=== PATIENT | male | born 1970 | race Hispanic/Latino ===

== ENCOUNTER 2018-01-04 02:54 | Inpatient (IN) | payer SELFPAY ==
[2018-01-04] MEDS ORDERED: Morphine 4 MG/ML VIAL ONE (03:10)
[2018-01-04] MEDS ORDERED: Pantoprazole 40 MG VIAL ONE (03:10)
[2018-01-04] MEDS ORDERED: Ondansetron HCl/PF 4 MG/2 ML Vial ONE (03:10)
[2018-01-04 03:31] LABS: Hemoglobin 6.4 g/dL (14.0-18.0); Mean Corpuscular HGB CONC 28.7 g/dL (32.0-36.0); Mean Corpuscular Hemoglobin 16.3 pg (27.0-31.0); Mean Corpuscular Volume 56.6 fL (78.0-98.0); Platelet Count 195 thou/uL (130-400); RBC Distribution Width 17.7 % (11.5-14.5); Red Blood Cell (RBC) Count 3.93 mill/uL (4.70-6.10); White Blood Cell (WBC) Count 5.6 thou/uL (4.8-10.8)
[2018-01-04 03:45] LABS: ALT (SGPT) 31 U/L (8-55); AST (SGOT) 32 U/L (5-34); Albumin 4.1 g/dL (3.5-5.0); Alkaline Phosphatase 103 U/L (40-150); Anion Gap 11 mmol/L (10-20); BUN (Urea Nitrogen) 11 mg/dL (8.9-20.6); Bilirubin, Total 1.5 mg/dL (0.2-1.2); Calc. Creatinine Clearance 0 mL/min (70-130); Calcium 8.7 mg/dL (7.8-10.44); Carbon Dioxide 25 mmol/L (22-29); Chloride 103 mmol/L (98-107); Estimated GFR-MDRD Greater than 90; Globulin 2.7 g/dL (2.4-3.5); Glucose 141 mg/dL (70-105); Lipase 23 U/L (8-78); Potassium 3.1 mmol/L (3.5-5.1); Protein, Total 6.8 g/dL (6.0-8.3); Sodium 136 mmol/L (136-145)
[2018-01-04 03:50] LABS: Anisocytosis SLIGHT = 6-15 cells (100X) (0-5/hpf); Band 1 % (5-11); CKMB 2.4 ng/mL (0-6.6); Elliptocytes SLIGHT = 2-5 cells (100X) (0-1/hpf); Eosinophils 1 % (0-10); Hypochromia MODERATE=16-30 cells (100X) (0-5/hpf); Lymphocytes 49 % (21-51); MDiff Complete? YES; Microcytosis MARKED = >30 cells (100X) (0-5/hpf); Monocytes 5 % (0-10); Neutrophil 43 % (42-75); PLT Morphology Comment Appears Adequate; Reflex for Review?? YES; Troponin I Less than 0.010 ng/mL (< 0.028)
[2018-01-04] MEDS ORDERED: Potassium Chloride 20 MEQ/100 ML PREMIX BAG ONE ×2 (04:17→06:05)
[2018-01-04 04:27] LABS: PTT 23.9 SEC (22.9-36.1)
[2018-01-04 04:28] LABS: INR-International Normal Ratio 1.1; Prothrombin Time 14.7 SEC (12.0-14.7)
[2018-01-04] MEDS ORDERED: Ondansetron ODT 4 MG TAB PO PRN (07:34)
[2018-01-04] MEDS ORDERED: Ondansetron HCl/PF 4 MG/2 ML Vial IVP PRN (07:34)
[2018-01-04 08:02] VITALS: BMI 27.9
[2018-01-04] MEDS: Potassium Chloride 20 MEQ in Premix Bag 1 BAG IVPB SCH ×2 (08:13→12:58)
[2018-01-04] MEDS ORDERED: Acetaminophen 650 MG Suppository PR PRN (08:23)
--- NOTE | 2018-01-04 08:57 | CT ---
PRELIMINARY REPORT/[facility]/EMERGENTY AFTER-HOURS PROCEDURE CT Abdomen and Pelvis With Intravenous Contrast EXAM DATE/TIME: Exam ordered 01/04/2018 3:33 AM CLINICAL HISTORY: 47 years old, male; Pain; Abdominal pain; Epigastric; Patient HX: Er 2; M47 presents to the ed C/O ab dominal pain that started 1 hour ago. Pt. Describes pain as sharp and being located in epigastric are a pt. States that he was laying down when the pain started. Pt. Reports n/v and SOB. Pt. Reports that he had a meal from [employer] before the symptoms had started. Pt. Denies having any chronic he alth complications. TECHNIQUE: Axial computed tomography images of the abdomen and pelvis with intravenous contrast. Coronal reformatted images were created and reviewed. COMPARISON: No relevant prior studies available. FINDINGS: Lung bases: There is subpleural atelectasis of the dependent portions of the lungs. ABDOMEN: Liver: There are no focal liver lesions identified. Gallbladder and bile ducts: The gallbladder is normal. There is no evidence of biliary ductal dilatio n. No calcified stones. Pancreas: The pancreas appears normal. No ductal dilation. Spleen: The spleen is normal. Adrenals: The adrenal glands are normal. Kidneys and ureters: The kidneys appear normal. No hydronephrosis. Stomach and bowel: There is dilatation of the small bowel up to 3.6 cm with abrupt collapse of the je junum in the LEFT upper quadrant suspicious for small bowel obstruction. The stomach is normal. The d uodenum is unremarkable. The colon is normal. No mucosal thickening. PELVIS: Appendix: A normal appendix is identified. Bladder: The bladder is normal. Reproductive: The prostate gland and seminal vesicles are normal. ABDOMEN and PELVIS: Intraperitoneal space: Normal. No free air. No significant fluid collection. Bones/joints: No acute fracture. No dislocation. Soft tissues: Normal. Vasculature: Normal. No abdominal aortic aneurysm. Lymph nodes: Normal. No enlarged lymph nodes. IMPRESSION: There is dilatation of the small bowel up to 3.6 cm with abrupt collapse of the jejunum in the LEFT u pper quadrant suspicious for small bowel obstruction. Thank you for allowing us to participate in the care of your patient. Dictated and Authenticated by: Xander Sanchez MD 01/04/2018 5:16 AM Central Time ([place] & [place]) CT ABDOMEN AND PELVIS WITH IV CONTRAST: FINAL REPORT: I agree with the preliminary report given by Dr. Sanchez of [facility]. POS: [facility]
--- NOTE | 2018-01-04 09:11 | RAD ---
ONE VIEW CHEST: History: Dyspnea. Comparison: None. FINDINGS: One view chest. Normal cardiac silhouette. The pulmonary vessels are within normal limits. Costophrenic angles are cl ear. No consolidation or mass. No pneumothorax or osseous abnormality. IMPRESSION: No acute cardiopulmonary process. POS: [facility]
[2018-01-04 10:36] LABS: #Eosinphils 0.1 thou/uL (0.0-0.7); #Monocytes 0.4 thou/uL (0.11-0.59); %Basophils 0.4 % (0.0-1.0); %Lymphocytes 18.8 % (21.0-51.0); %Monocytes 7.3 % (0.0-10.0); %Neutrophils 71.6 % (42.0-75.0); Hemoglobin 8.3 g/dL (14.0-18.0); Mean Corpuscular HGB CONC 29.1 g/dL (32.0-36.0); Mean Corpuscular Hemoglobin 18.1 pg (27.0-31.0); Mean Corpuscular Volume 62.3 fL (78.0-98.0); Mean Platelet Volume 6.3 fL (7.4-10.4); Platelet Count 194 thou/uL (130-400); RBC Distribution Width 24.6 % (11.5-14.5); Red Blood Cell (RBC) Count 4.59 mill/uL (4.70-6.10); White Blood Cell (WBC) Count 5.6 thou/uL (4.8-10.8)
[2018-01-04 10:37] LABS: Reticulocyte Count 1.7 % (0.5-1.5)
[2018-01-04 10:48] LABS: Iron 13 ug/dL (65-175); Iron Binding Capacity, Total 424 mcg/dL (261-462)
--- NOTE | 2018-01-04 10:58 | PDOC.GSCN ---
Surgery Consult: HPI - Consult details Date: 01/04/18 Time: 10:00 Reason for consult: small bowel obstruction History of present illness: Patient is a 47 year old male that presents after having sharp abdominal pain this morning at 2am. Pain located in RUQ and radiates to epigastric area. Patient has had this pain in the past, but not as severe. Ate a hamburger at [employer] yesterday evening. Abdominal pain has since improved. Endorses nausea following the meal. Bowel function unchanged. Denies weight loss. Reports bright red blood per rectum. 01/04/18 11:06 Surgery Consult: ROS - Review of Systems All systems: 10 systems reviewed and no additional complaints unless stated below. Surgery Consult: PMH Source: patient Past Medical History: Denies Past Surgical History: None - Past Family History Family history: reviewed and not pertinent (No family history of colon cancer.) - Past Social History Smoking Status: Never smoker Alcohol Use: other (endorses drinking every other day) Drug Use History: none Living Situation: Surgery Consult: Exam - Vital signs Vital signs: Vital Signs - Most Recent Temp Pulse Resp BP Pulse Ox 98.1 F 62 20 115/72 100 01/04/18 07:59 01/04/18 07:59 01/04/18 07:59 01/04/18 07:59 01/04/18 07:59 - Physical Exam General: no distress, well developed, well nourished Eye: normal ocular movement Respiratory: normal expansion, normal respiratory effort Abdomen: soft, tender, bowel sounds Neurologic: normal coordination Psychiatric: memory intact, speech is normal Surgery Consult: Meds - Medications MAR Reviewed: Yes Medications: Current Medications Acetaminophen (Tylenol) 650 mg VA Q4H PRN PRN Reason: Headache/Fever or Pain Ondansetron HCl (Zofran) 4 mg IVP Q6H PRN PRN Reason: Nausea/Vomiting Stop: 01/04/18 18:00 Ondansetron HCl (Zofran Odt) 4 mg PO Q6H PRN PRN Reason: Nausea/Vomiting Stop: 01/04/18 18:00 Sodium Chloride (Flush - Normal Saline) 10 ml IVF Q12HR TRISTEN Sodium Chloride (Flush - Normal Saline) 10 ml IVF PRN PRN PRN Reason: Saline Flush - Allergies Allergies/Adverse Reactions: Allergies Allergy/AdvReac Type Severity Reaction Status Date / Time No Known Drug Allergies Allergy Verified 01/04/18 08:14 Surgery Consult: Results - Labs Result Diagrams: 01/04/18 10:03 01/04/18 03:05 Lab results: Laboratory Results WBC 5.6 thou/uL (4.8-10.8) 01/04/18 10:03 RBC 4.59 mill/uL (4.70-6.10) L 01/04/18 10:03 Hgb 8.3 g/dL (14.0-18.0) L 01/04/18 10:03 Hct 28.6 % (42.0-52.0) L 01/04/18 10:03 MCV 62.3 fL (78.0-98.0) L 01/04/18 10:03 MCH 18.1 pg (27.0-31.0) L 01/04/18 10:03 MCHC 29.1 g/dL (32.0-36.0) L 01/04/18 10:03 RDW 24.6 % (11.5-14.5) H 01/04/18 10:03 Plt Count 194 thou/uL (130-400) 01/04/18 10:03 MPV 6.3 fL (7.4-10.4) L 01/04/18 10:03 Neutrophils % 71.6 % (42.0-75.0) 01/04/18 10:03 Neutrophils % (Manual) 43 % (42-75) 01/04/18 03:05 Band Neuts % (Manual) 1 % (5-11) L 01/04/18 03:05 Lymphocytes % 18.8 % (21.0-51.0) L 01/04/18 10:03 Lymphocytes % (Manual) 49 % (21-51) 01/04/18 03:05 Monocytes % 7.3 % (0.0-10.0) 01/04/18 10:03 Monocytes % (Manual) 5 % (0-10) 01/04/18 03:05 Eosinophils % 2.0 % (0.0-10.0) 01/04/18 10:03 Eosinophils % (Manual) 1 % (0-10) 01/04/18 03:05 Basophils % 0.4 % (0.0-1.0) 01/04/18 10:03 Basophils % (Manual) 1 % (0-2) 01/04/18 03:05 Neutrophils # 4.0 thou/uL (1.40-6.50) 01/04/18 10:03 Lymphocytes # 1.0 thou/uL (1.20-3.40) L 01/04/18 10:03 Monocytes # 0.4 thou/uL (0.11-0.59) 01/04/18 10:03 Eosinophils # 0.1 thou/uL (0.0-0.7) 01/04/18 10:03 Basophils # 0.0 thou/uL (0.0-0.2) 01/04/18 10:03 Hypochromia MODERATE=16-30 cells (100X) (0-5/hpf) 01/04/18 03:05 Plt Morphology Comment Appears Adequate 01/04/18 03:05 Anisocytosis SLIGHT = 6-15 cells (100X) (0-5/hpf) 01/04/18 03:05 Microcytosis MARKED = >30 cells (100X) (0-5/hpf) 01/04/18 03:05 Elliptocytes SLIGHT = 2-5 cells (100X) (0-1/hpf) 01/04/18 03:05 Smear Path Review 01/04/18 03:05 Retic Count 1.7 % (0.5-1.5) H 01/04/18 10:03 Immature Retic Fraction 0.482 Ratio (0.163-0.362) H 01/04/18 10:03 PT 14.7 SEC (12.0-14.7) 01/04/18 03:05 INR 1.1 01/04/18 03:05 APTT 23.9 SEC (22.9-36.1) 01/04/18 03:05 Sodium 136 mmol/L (136-145) 01/04/18 03:05 Potassium 3.1 mmol/L (3.5-5.1) L 01/04/18 03:05 Chloride 103 mmol/L (98-107) 01/04/18 03:05 Carbon Dioxide 25 mmol/L (22-29) 01/04/18 03:05 Anion Gap 11 mmol/L (10-20) 01/04/18 03:05 BUN 11 mg/dL (8.9-20.6) 01/04/18 03:05 Creatinine 0.80 mg/dL (0.6-1.3) 01/04/18 03:05 Estimated GFR (MDRD) Greater than 90 01/04/18 03:05 Glucose 141 mg/dL (70-105) H 01/04/18 03:05 Calcium 8.7 mg/dL (7.8-10.44) 01/04/18 03:05 Iron 13 ug/dL (65-175) L 01/04/18 10:03 TIBC 424 mcg/dL (261-462) 01/04/18 10:03 Total Bilirubin 1.5 mg/dL (0.2-1.2) H 01/04/18 03:05 AST 32 U/L (5-34) 01/04/18 03:05 ALT 31 U/L (8-55) 01/04/18 03:05 Alkaline Phosphatase 103 U/L (40-150) 01/04/18 03:05 CK-MB (CK-2) 2.4 ng/mL (0-6.6) 01/04/18 03:05 Troponin I Less than 0.010 ng/mL (< 0.028) 01/04/18 03:05 Serum Total Protein 6.8 g/dL (6.0-8.3) 01/04/18 03:05 Albumin 4.1 g/dL (3.5-5.0) 01/04/18 03:05 Globulin 2.7 g/dL (2.4-3.5) 01/04/18 03:05 Albumin/Globulin Ratio 1.5 g/dL (1.2-2.2) 01/04/18 03:05 Lipase 23 U/L (8-78) 01/04/18 03:05 Blood Type A POSITIVE 01/04/18 03:35 Antibody Screen NEGATIVE 01/04/18 03:35 Crossmatch See Detail 01/04/18 03:35 Surgery Consult: A/P - Plan Plan: Consulted for concern of SBO. Reviewed imaging. Considering patient's age and no previous surgeries, SBO less likely. Abdominal pain symptoms could be suspicious for biliary colic. He has never had a RUQ ultrasound, so one has been ordered to evaluate for cause of his pain. Recommend GI consult for workup of patient's bloody stools and microcytic anemia. Patient has been seen and examined by Dr. Lucero, who agrees with plan as noted above.
[2018-01-04 11:51] LABS: Folate (Folic Acid) 9.9 ng/mL (7.0-31.4)
--- NOTE | 2018-01-04 11:57 | CON ---
DATE OF CONSULTATION: 01/04/2018 GASTROENTEROLOGY CONSULTATION NOTE CHIEF COMPLAINT: Abdominal pain. HISTORY OF PRESENT ILLNESS: Mr. Barksdale is a 47-year-old man who presented to the emergency room ear this morning after he had a sudden onset of right upper quadrant epigastric sharp abdominal pain. The pain was exacerbated by taking a deep breath and movement. The pain started suddenly about 2:00 a.m. and then remained constant until he received pain medicine in the emergency room. 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 He was found to have severe anemia when he was in [facility] emergency room. He does report chronic hematochezia. He sees red blood that will turn the water red around once or twice per week as he has a bowel movement. He had some procedure for hemorrhoids back in 2013 in the emergency room, possibly evacuation of clot and external hemorrhoids; however, it is unclear exactly. He has had no diarrhea or constipation lately. His last bowel movement was a f ormed normal bowel movement yesterday. He had no prior endoscopic procedures. PAST MEDICAL HISTORY: Hemorrhoids PAST SURGICAL HISTORY: None. FAMILY HISTORY: Negative for GI malignancy. SOCIAL HISTORY: He had a half-sister with ovarian or uterine cancer. HABITS: He has 3 or 4 beers every couple of days. No smoking or drugs. ALLERGIES: No known drug allergies. MEDICATIONS PRIOR TO ADMISSION: None. No significant NSAID use. REVIEW OF SYSTEMS: Negative x10 systems reviewed except as stated in history of present illness. PHYSICAL EXAMINATION: VITAL SIGNS: Temperature 98.1, pulse 62, blood pressure 115/72. GENERAL: He is in no acute distress, alert and oriented x3. OROPHARYNX: Clear, without lesions. HEENT: Eyes have no scleral icterus. He has no cervical or supraclavicular lymphadenopathy. LUNGS: Clear to auscultation bilaterally. HEART: Regular rate and rhythm without murmur. ABDOMEN: Soft, minimal tenderness in the right upper quadrant. Bowel sounds are present. EXTREMITIES: No lower extremity edema. NEUROLOGIC: Cranial nerves are grossly intact. LABORATORY DATA: White blood cell count 5.6, hemoglobin is 8.3 after 2 units transfusion, platelets 194, MCV 56. Hemoglobin on presentation was 6.4, retic count was elevated at 1.7. INR 1.1, creatini ne 0.8. Iron 13, TIBC 424, bilirubin 1.5, AST 32, ALT 31, alkaline phosphatase 103, albumin 4.1, lip ase 23. IMPRESSION: 1. Severe iron deficiency anemia. He does have some chronic hematochezia with red blood in the toil et around once or twice per week, most likely related to hemorrhoids. We will need to rule out lower GI bleeding source. It would be unusual for this degree of bleeding to cause such a severe anemia a s this is still possible source. 2. Abnormal CT scan of the abdomen showing dilation of the small bowel up to 3.6 cm with abrupt piter apse and jejunum in the left upper quadrant, question of a small bowel lesion or tumor could be possi ble as a source for iron deficiency anemia. 3. Right upper quadrant pain. This was sudden onset and has gone this morning. RECOMMENDATIONS: 1. EGD and colonoscopy tomorrow. 2. Ultrasound of the right upper quadrant has been ordered to evaluate the right upper quadrant pain . 3. If the EGD and colonoscopy are negative, then the next step will be CT enterography to evaluate f or small bowel lesion further. If no significant stricture is seen at this point, then a capsule end oscopy could be performed as an outpatient. Ultimately, this could require surgical evaluation.
[2018-01-04] MEDS ORDERED: ISOVUE-370 76%-LOCM 1 ML ONE (12:46)
--- NOTE | 2018-01-04 13:09 | ULT ---
SONOGRAM RIGHT UPPER QUADRANT: History: Right upper quadrant pain. FINDINGS: Gallbladder has a normal appearance. Common duct is 0.5 cm. Liver echogenic without focal mass or int rahepatic biliary dilatation. No free fluid. IMPRESSION: 1. No evidence of gallstones or acute biliary obstruction. 2. Hepatosteatosis. POS: [facility]
[2018-01-04] MEDS ORDERED: Iron Sucrose Complex 200 MG in Sodium Chloride 0.9% 250 ML 250 ML IVPB SCH (16:00)
[2018-01-04] MEDS ORDERED: Sodium Ferric Gluconate 250 MG in Sodium Chloride 0.9% 100 ML IVPB SCH (16:45)
--- NOTE | 2018-01-04 16:56 | HP ---
PRIMARY CARE PROVIDER: [facility] [[email or web address] CHIEF COMPLAINT: Abdominal pain. HISTORY OF PRESENT ILLNESS: Mr. Barksdale is a pleasant 47-year-old gentleman who was seen at [facility] on 01/04/2018. He reports that he has been having on and off bloody bowel movements over the last several weeks. He describes it as watery stools accompanied by blood. He denies any fevers or chills. Today, he was woken up from sleep with sharp right upper quadrant pain, 10/10, nonradiating, constant , accompanied by shortness of breath, no known aggravating or relieving factors. He reports nausea, but no vomiting. He came to the emergency room because of ongoing abdominal pain. He reports eating at [employer] before the symptoms started. REVIEW OF SYSTEMS: All other systems reviewed and found to be negative. PAST MEDICAL HISTORY: None. PAST SURGICAL HISTORY: None. SOCIAL HISTORY: Occasional alcohol use, no tobacco use or recreational drug use. FAMILY HISTORY: Sister with uterine cancer, brother with cancer of the face. ALLERGIES: No known drug allergies. CURRENT MEDICATIONS: None. PHYSICAL EXAMINATION: GENERAL: On examination, Mr. Barksdale is awake and alert, not in acute distress. VITAL SIGNS: Blood pressure is 115/72, pulse 62, respiratory rate 20, and oxygen saturation 100% on 3 liters oxygen by nasal cannula. He is afebrile. EYES: No scleral icterus. No conjunctival pallor. ENT: Moist mucosal membranes, no oropharyngeal erythema or exudates. NECK: Supple, nontender, trachea is midline. RESPIRATORY: Accessory muscles of breathing are not active. Chest wall movements are symmetric bila terally. LUNGS: Clear to auscultation without wheeze, rhonchi or crepitations. CARDIOVASCULAR: S1 and S2 are heard, regular. Peripheral pulses palpable. No carotid bruit, no per icardial rub. ABDOMEN: Right upper quadrant is mildly tender. There is no guarding or rigidity. Bowel sounds are heard. No hepatomegaly or splenomegaly. Pearl' sign is negative. NEUROLOGIC: Cranial nerves II-XII intact. Deep tendon reflexes are 2+. MUSCULOSKELETAL: Power is 5/5 in all 4 extremities. LYMPHATIC: No cervical lymphadenopathy. SKIN: No rashes or subcutaneous nodules. PSYCHIATRIC: Normal mood, normal affect, patient is oriented to person, place, and time. LABORATORY DATA: Mr. Barksdale's labs and investigations were reviewed. He has normal white count, mi crocytic anemia with hemoglobin 6.4, normal platelet count, INR 1.1, normal sodium, decreased potassi um of 3.1, normal creatinine, elevated total bilirubin of 1.5, otherwise unremarkable liver profile a nd normal calcium. I reviewed his electrocardiogram, which shows normal sinus rhythm, no ST changes to suggest an acute coronary syndrome. I also reviewed his chest x-ray, which does not show any pulmonary infiltrates. CT scan of the abdomen and pelvis showed dilatation of the small bowel up to 3.6 cm with abrupt colla pse of the jejunum in the left upper quadrant, suspicious for small-bowel obstruction. ASSESSMENT AND PLAN: Mr. Barksdale is a pleasant 47-year-old gentleman who was seen at [facility] on 01/04/2018. His problem list includes: 1. Abdominal pain: Etiology unclear at this time, could be related to bowel obstruction. Patient w ill be admitted to the hospital for further management. General Surgery Service has been consulted. They recommend Gastroenterology evaluation. We will await the same. 2. Bloody diarrhea. Patient will likely need scope studies to rule out inflammatory bowel disease. There is no evidence of infection at this time. 3. Symptomatic anemia: Patient has received packed RBC transfusion. We will follow hemoglobin. 4. Hypokalemia: Replace potassium, recheck potassium level. We will order iron studies, vitamin B12 and folate levels. Many thanks for allowing me to participate in your patient's care. Please feel free to contact me wi th any questions or concerns. LEVEL OF RISK: High. LEVEL OF COMPLEXITY: Intermediate.
[2018-01-04] MEDS ORDERED: GoLYTELY 4,000 ml Bottle PO SCH (18:45)
[2018-01-05 05:01] LABS: Anion Gap 14 mmol/L (10-20); BUN (Urea Nitrogen) 7 mg/dL (8.9-20.6); Calc. Creatinine Clearance 204 mL/min (70-130); Carbon Dioxide 24 mmol/L (22-29); Chloride 105 mmol/L (98-107); Estimated GFR-MDRD Greater than 90; Glucose 86 mg/dL (70-105); Potassium 3.6 mmol/L (3.5-5.1); Sodium 139 mmol/L (136-145)
[2018-01-05 05:38] LABS: #Eosinphils 0.2 thou/uL (0.0-0.7); #Lymphocytes 1.5 thou/uL (1.20-3.40); #Monocytes 0.5 thou/uL (0.11-0.59); #Neutrophils 2.7 thou/uL (1.40-6.50); %Basophils 0.7 % (0.0-1.0); %Lymphocytes 30.3 % (21.0-51.0); %Monocytes 9.9 % (0.0-10.0); %Neutrophils 55.2 % (42.0-75.0); Anisocytosis SLIGHT = 6-15 cells (100X) (0-5/hpf); Hypochromia MODERATE=16-30 cells (100X) (0-5/hpf); MDiff Complete? YES; Mean Corpuscular HGB CONC 30.3 g/dL (32.0-36.0); Mean Corpuscular Hemoglobin 18.7 pg (27.0-31.0); Mean Corpuscular Volume 61.8 fL (78.0-98.0); Mean Platelet Volume 6.9 fL (7.4-10.4); Ovalocytes SLIGHT = 2-5 cells (100X) (0-1/hpf); Platelet Count 173 thou/uL (130-400); RBC Distribution Width 24.3 % (11.5-14.5); Red Blood Cell (RBC) Count 4.29 mill/uL (4.70-6.10)
[2018-01-05 05:39] LABS: PLT Morphology Comment Appears Adequate
[2018-01-05] MEDS ORDERED: Iopamidol 370 76% 100 ML VIAL ONE (08:31)
--- NOTE | 2018-01-05 11:41 | OP ---
DATE OF PROCEDURE: 01/05/2019 PROCEDURE: Esophagogastroduodenoscopy with biopsy and colonoscopy. PREOPERATIVE DIAGNOSIS: Iron deficiency anemia and abnormal CT scan of the abdomen. OPERATIVE NOTE: Informed consent was obtained from the patient. He was sedated with total intraveno us anesthesia. The bite block was placed and the endoscope was advanced easily to the second portion of the duodenum and retroflexion was performed in the stomach. The esophagus was normal. The GE ju nction was normal. The stomach was normal including retroflexed views. The first, second, third, an d fourth portions of the duodenum were normal. Biopsies were taken from the duodenum to rule out alejandro iac disease. Patient was turned around. Rectal exam was performed and was normal. The colonoscope was advanced to the terminal ileum without difficulty. The mucosa of the terminal ileum was normal. There was mild diverticulosis of the left colon, descending and sigmoid colon. Moderate internal he morrhoids were present and noted on retroflexed views. The remainder of the colonic mucosa was esme l. Preparation quality was good. IMPRESSION: 1. Normal esophagogastroduodenoscopy to the fourth portion of the duodenum. Biopsies were taken fro m the duodenum. 2. Mild diverticulosis of the left colon. 3. Moderate internal hemorrhoids. 4. Otherwise normal colonoscopy to the terminal ileum. RECOMMENDATIONS: 1. CT enterography to evaluate for small bowel bleeding source. There was a possible lesion noted b y CT scan in the small bowel. If CT enterography does show an obvious lesion here, then next step wi ll be surgery. 2. Repeat colonoscopy in 10 years for colon cancer screening. 3. If the CT enterography is normal, then capsule endoscopy could be considered as the next step.
--- NOTE | 2018-01-05 14:17 | PDOC.PN ---
- Subjective Encounter Start Date: 01/05/18 Encounter Start Time: 09:00 Pt seen for followup re: abdominal pain. Denies chest pain, shortness fo breath , fevers or chills. No nausea or vomiting. - Objective Vital Signs & Weight: Vital Signs (12 hours) Temp Pulse Resp BP BP BP Pulse Ox 01/05/18 11:57 97.5 F L 63 16 143/93 H 100 01/05/18 09:13 98 01/05/18 08:00 97.7 F 61 16 96 01/05/18 07:50 97.7 F 61 16 115/75 96 01/05/18 04:27 97.7 F 61 16 116/69 98 Weight Weight 255 lb 11.779 oz I&O: 01/04/18 01/05/18 01/06/18 06:59 06:59 06:59 Intake Total 2049 Balance 2049 Result Diagrams: 01/05/18 03:50 01/05/18 03:50 Additional Labs: Labs reviewed by me Phys Exam - Physical Examination Constitutional: NAD HEENT: moist MMs, sclera anicteric, oral pharynx no lesions, 2+ tonsils Neck: no nodes, no JVD, supple, full ROM Respiratory: no wheezing, no rales, no rhonchi, clear to auscultation bilateral Cardiovascular: RRR, no rub S1, S2 Gastrointestinal: soft, no distention, positive bowel sounds Mild RUQ tenderness, no guarding or rigidity Neurological: moves all 4 limbs Psychiatric: normal affect, A&O x 3 Dx/Plan (1) Abdominal pain Code(s): R10.9 - UNSPECIFIED ABDOMINAL PAIN Status: Acute Comment: Pt going for EGD/C-scope today (2) Symptomatic anemia Code(s): D64.9 - ANEMIA, UNSPECIFIED Status: Acute Comment: s/p pRBC transfusion (3) Iron deficiency Code(s): E61.1 - IRON DEFICIENCY Status: Chronic Comment: s/p iron infusion (4) Hypokalemia Code(s): E87.6 - HYPOKALEMIA Status: Resolved - Plan * . Review of Systems - Review of Systems Constitutional: negative: fever, chills, sweats, weakness, malaise Respiratory: negative: Cough, Shortness of Breath, SOB with Excertion, Pleuritic Pain, Wheezing Cardiovascular: negative: chest pain, palpitations, orthopnea, paroxysmal nocturnal dyspnea, edema, light headedness Gastrointestinal: Abdominal Pain. negative: Nausea, Vomiting, Diarrhea, Constipation, Melena, Hematochezia Skin: negative: Rash, Lesions, Emmett, Bruising - Medications/Allergies Allergies/Adverse Reactions: Allergies Allergy/AdvReac Type Severity Reaction Status Date / Time No Known Drug Allergies Allergy Verified 01/04/18 08:14 Medications: Current Medications Acetaminophen (Tylenol) 650 mg RI Q4H PRN PRN Reason: Headache/Fever or Pain Sodium Chloride (Flush - Normal Saline) 10 ml IVF Q12HR TRISTEN Last Admin: 01/05/18 10:10 Dose: Not Given Sodium Chloride (Flush - Normal Saline) 10 ml IVF PRN PRN PRN Reason: Saline Flush
[2018-01-05] MEDS ORDERED: PROPOFOL 200 MG/20 ML VIAL ONE (15:10)
[2018-01-05] MEDS ORDERED: Lidocaine 1% PF 5 ML VIAL ONE (15:10)
--- NOTE | 2018-01-05 15:14 | CT ---
CT ABDOMEN AND PELVIS WITH AND WITHOUT CONTRAST: HISTORY: Abdominal pain. COMPARISON: CT yesterday. FINDINGS: The patient did not drink the oral contrast. This is not enterography protocol, which is adequately performed. Lung bases are clear. There is no nephroureteral lithiasis or hydroureteral nephrosis. No secondary evidence of a recently passed stone. No dilated loops of large or small bowel. The previously described proximal small bowel dilatation h as resolved. The aortoiliac contour is normal. Small periaortic retroperitoneal lymph nodes are pre sent. The skeleton is unremarkable. IMPRESSION: 1. Interval resolution of the left upper quadrant bowel dilatation. 2. The exam was not performed with enterography protocol as the patient did not drink the oral contr ast. POS: [facility]
[2018-01-06 05:07] LABS: Anion Gap 11 mmol/L (10-20); BUN (Urea Nitrogen) 7 mg/dL (8.9-20.6); Calc. Creatinine Clearance 199 mL/min (70-130); Carbon Dioxide 26 mmol/L (22-29); Chloride 104 mmol/L (98-107); Estimated GFR-MDRD Greater than 90; Glucose 88 mg/dL (70-105); Potassium 3.5 mmol/L (3.5-5.1); Sodium 137 mmol/L (136-145)
[2018-01-06 05:13] LABS: #Eosinphils 0.4 thou/uL (0.0-0.7); #Lymphocytes 1.9 thou/uL (1.20-3.40); #Monocytes 0.7 thou/uL (0.11-0.59); #Neutrophils 3.5 thou/uL (1.40-6.50); %Basophils 0.6 % (0.0-1.0); %Eosinophils 5.5 % (0.0-10.0); %Lymphocytes 29.3 % (21.0-51.0); %Monocytes 10.2 % (0.0-10.0); %Neutrophils 54.4 % (42.0-75.0); Hemoglobin 8.5 g/dL (14.0-18.0); Mean Corpuscular HGB CONC 30.7 g/dL (32.0-36.0); Mean Corpuscular Volume 61.9 fL (78.0-98.0); Platelet Count 209 thou/uL (130-400); RBC Distribution Width 25.7 % (11.5-14.5); Red Blood Cell (RBC) Count 4.45 mill/uL (4.70-6.10); White Blood Cell (WBC) Count 6.4 thou/uL (4.8-10.8)
[2018-01-06 05:14] LABS: Anisocytosis SLIGHT = 6-15 cells (100X) (0-5/hpf); Hypochromia MODERATE=16-30 cells (100X) (0-5/hpf); MDiff Complete? YES; Microcytosis MODERATE=15-30 cells (100X) (0-5/hpf)
[2018-01-06] MEDS ORDERED: ISOVUE-370 76%-LOCM 1 ML ONE (09:53)
[2018-01-06 11:37] VITALS: BP 153/84; TEMP 97.9
--- NOTE | 2018-01-06 12:38 | PRG ---
DATE OF SERVICE: 01/06/2018 SUBJECTIVE: Mr. Barksdale has no complaints. He has been tolerating a solid diet. No abdominal pain or nausea or vomiting. OBJECTIVE: VITAL SIGNS: Temperature 97.9, pulse 80, blood pressure 153/84. GENERAL: He is in no acute distress, alert and oriented x3. LUNGS: Clear to auscultation bilaterally. HEART: Regular rate and rhythm. ABDOMEN: Soft, nontender, nondistended. Bowel sounds are present. EXTREMITIES: No lower extremity edema. IMPRESSION: Iron deficiency anemia. EGD and colonoscopy were negative for bleeding source. Duodena l biopsies are pending. Possible small bowel lesion was noted on admission CT with dilation of the s mall bowel up to a point and decompression distal to that. RECOMMENDATIONS: CT enterography has been scheduled. If this confirms a small bowel lesion or narro wing, then surgical consultation will be the next step. If the small bowel appears normal with this with no narrowing, then the next step will be outpatient capsule endoscopy.
--- NOTE | 2018-01-06 14:55 | CT ---
PRE AND POSTCONTRAST ENHANCED CT IMAGES ABDOMEN AND PELVIS: Date: 01/06/18 HISTORY: Abdominal pain. FINDINGS: The lung bases are unremarkable. No evidence of free intraperitoneal air seen. No dilated loops of small bowel seen. The small bowel lumen is fairly symmetric throughout the small bowel. The liver, spleen, gallbladder, pancreas, adrenal glands, and kidneys are unremarkable. IMPRESSION: Normal pre and postcontrast enhanced CT images of the abdomen and pelvis. Some descending colonic diverticulosis is present. POS: [facility]
--- NOTE | 2018-01-06 18:57 | PRG ---
DATE OF SERVICE: 01/06/2018 SUBJECTIVE: This is a 47-year-old male that our team is seeing in consultation for right upper quadr ant pain and possible mass. The patient was seen and evaluated by GI. He has recently undergone a C T of the abdomen and pelvis with enterography. Results are still pending. Patient underwent EGD and colonoscopy on 01/05/2018 which demonstrated diverticulosis and internal hemorrhoids. Upon my evalu ation, the patient vocalized no complaints and states right upper quadrant abdominal pain has improve d. OBJECTIVE: VITAL SIGNS: Temperature 97.9, pulse 80, respirations 16, O2 sat 94% on room air, blood pressure 153 /84. GENERAL: Well-developed male in no acute distress, sitting on the edge of the bed. HEAD: Normocephalic, atraumatic. PULMONARY: Normal work of breathing. Symmetric rise. CARDIOVASCULAR: Regular rate and rhythm. GASTROINTESTINAL: Abdomen is soft, nontender, nondistended. Bowel sounds are positive. MUSCULOSKELETAL: Moves all extremities x4. NEUROLOGIC: No focal deficit noted. LABORATORY FINDINGS: WBC 6.4, hemoglobin 8.5, hematocrit 27.6, platelet count 209. Sodium 137, pota ssium 3.5, chloride 104, carbon dioxide 26, BUN 7, creatinine 0.77, glucose 88. ASSESSMENT: 1. Right upper quadrant pain, resolved. 2. Microcytic anemia with bloody stools. PLAN: Follow up abdomen and pelvis CT. If no evidence of suspicious mass, Surgery will sign off at this time as there is no acute surgical indication. The patient is being evaluated by GI and will olson ve outpatient followup with them regarding his microcytic anemia. Plan of care was discussed with the patient at bedside. All questions were answered at the time of t his dictation. Patient has been discussed with Dr. Lucero.
--- NOTE | 2018-01-06 22:13 | DIS ---
DATE OF ADMISSION: 01/04/2018 DATE OF DISCHARGE: 01/06/2018 PRIMARY CARE PROVIDER: Nitin Le. DISCHARGE DIAGNOSES: 1. Abdominal pain. 2. Iron deficiency anemia. 3. Bowel obstruction. 4. Descending colon diverticulosis. 5. Rectal bleed. 6. Hypokalemia. 7. Iron deficiency. 8. Symptomatic anemia. CONDITION OF PATIENT ON THE DAY OF DISCHARGE: Stable. I assessed Mr. Barksdale on the day of discharg e. He denies any chest pain or shortness of breath. He denies any abdominal pain. Vital signs are stable. S1 and S2 are heard, regular. Lungs are clear to auscultation bilaterally. CONSULTATIONS DURING THIS HOSPITALIZATION: General surgery, Dr. Lopez Lucero; and Gastroenterology, Dr. Clif Ng. DISCHARGE MEDICATIONS: Ferrous sulfate 325 mg daily. HOSPITAL COURSE: Mr. Barksdale is a pleasant 47-year-old gentleman, who was admitted to [facility] on 01/04/2018 for abdominal pain and symptomatic anemia, CT scan of the abdomen and pelvis done at the time of admission was suspicious for bowel obstruction. He was seen by General Surgery Service as well as by Gastroenterology Service. He underwent EGD an d colonoscopy on 01/05/2018. He had a normal EGD to the fourth portion of the duodenum. Biopsies we re taken from the duodenum. He also had mild diverticulosis of the left colon and moderate internal hemorrhoids. Following the scope studies, he underwent CT enterography to evaluate for small bowel b leeding source. He had it done on 01/05/2018; however, it was done without oral contrast. He was no nohemy to have resolution of left upper quadrant bowel dilatation on that study. He went on to have CT enterography on 01/06/2018, which was normal. He had some descending colonic diverticulosis. He was found to have iron deficiency, with iron level of 13, TIBC 424, and ferritin 3.01. He receive d intravenous iron infusion. He is now being discharged home on oral iron at home. During this hospitalization, he also had packed RBC transfusion. At the time of admission, he had he moglobin 6.4. On the day of discharge, his hemoglobin 8.5, white count 6400, platelet count 209,000, normal electrolytes and normal creatinine. Vitamin B12 and folate levels were normal during this ho spitalization. Many thanks for allowing me to participate in your patient's care. Please feel free to contact me wi th any questions or concerns. DISCHARGE DESTINATION: Home. TOTAL AMOUNT OF TIME SPENT COORDINATING THIS DISCHARGE: 33 minutes.
== END 2018-01-06 17:38 | disposition home or self-care (01) | DRG 388 ==
LOC: ERS 02:54 → T4-A 07:18
PROVIDERS: ADMIT Hospitalist; ATTEND Hospitalist
PROC: 30233N1 Transfusion of Nonautologous Red Blood Cells into Peripheral Vein, Percutaneous Approach (ICD-10-PCS; 2018-01-04)
PROC: 0DB98ZX Excision of Duodenum, Via Natural or Artificial Opening Endoscopic, Diagnostic (ICD-10-PCS; principal; 2018-01-05)
PROC: 0DJD8ZZ Inspection of Lower Intestinal Tract, Via Natural or Artificial Opening Endoscopic (ICD-10-PCS; 2018-01-05)
DX: K56.609 Unspecified intestinal obstruction, unspecified as to partial versus complete obstruction (principal); K57.31 Diverticulosis of large intestine without perforation or abscess with bleeding; K62.5 Hemorrhage of anus and rectum; D50.9 Iron deficiency anemia, unspecified; E87.6 Hypokalemia; K64.8 Other hemorrhoids; E66.9 Obesity, unspecified; Z68.27 Body mass index [BMI] 27.0-27.9, adult
CPT/HCPCS: 36415; 36430; 71045; 74177; 74178; 76705; 80048; 80053; 82274; 82553; 82607; 82728; 82746; 83540; 83550; 83690; 84484; 85025; 85046; 85060; 85610; 85730; 86850; 86900; 86901; 88305; 93005; 96365; 96366; 96368; 96374; 96375; C9113; J2001; J2270; J2405; J2704; J2916; J3475; J3480; J7050; P9016